=== PATIENT | female | born 1990 | race Caucasian/White ===

== ENCOUNTER 2016-06-05 11:21 | Emergency (ER) | payer MEDICAID ==
[2016-06-01 10:10] VITALS: BMI 36.2
[~2016-06-05 11:21] MED LIST: ABILIFY15 MG PO; BUSPAR 15 MG TA15 MG PO; DEPAKOTE ER500 MG PO; DEPAKOTE500 MG PO; GEODON40 MG PO; HYDROCODON-ACE1 EAC7 PO; KLONOPIN1 MG PO; LINZESS290 MCG PO; OXYCODONE HCL5 MG PO; PHENERGAN25 M1 PO; PROAIR HFA8.5 GM INH; TOFRANIL25 MG PO; TRIAMTERENE-HCT1 TA1 PO
[2016-06-05 11:51] LABS: BASOPHILS 0.2 % (0.0-2.0); EOSINOPHILS 3.2 % (0-7); HEMATOCRIT 40.7 % (36.0-48.0); HEMOGLOBIN 13.6 g/dL (12-16); IMMATURE GRANULOCYTES 0.7 % (0-5); LYMPHOCYTES 18.6 % (15-50); MCH 29.2 pg (26.0-34.0); MCHC 33.4 g/dL (31.0-37.0); MCV 87.5 fL (80.0-100.0); MEAN PLATELET VOLUME 11.5 fL (7.4-10.4); MONOCYTES 6.3 % (2-11); RBC 4.65 10x6/uL (4.00-5.40); RDW 12.9 % (11.5-14.5); WBC 8.1 10x3/uL (4.8-10.8)
[2016-06-05 11:52] LABS: PLATELET COUNT 188 10x3/uL (130-400)
[2016-06-05 12:10] LABS: ALBUMIN 3.1 g/dL (3.4-5.0); ALKALINE PHOSPHATASE 61 U/L (46-116); ALT (SGPT) 27 U/L (10-68); BILIRUBIN - TOTAL 0.32 mg/dL (0.2-1.3); CALC OSMOLALITY 277 mosm/kg (275-300); CALCIUM 8.8 mg/dL (8.5-10.1); CARBON DIOXIDE 22.8 mmol/L (21.0-32.0); CHLORIDE - SERUM 105 mmol/L (98-107); CREATININE - SERUM 0.8 mg/dL (0.6-1.3); GLUCOSE 111 mg/dL (74-106); POTASSIUM - SERUM 3.1 mmol/L (3.5-5.1); PROTEIN - SERUM 6.5 g/dL (6.4-8.2); SODIUM 140 mmol/L (136-145); UREA NITROGEN 6 mg/dL (7-18); eGFR NON AFRICAN AMERICAN 90 mL/min (90-120)
== END 2016-06-05 13:35 | disposition left against medical advice (07) ==
LOC: D.ER 11:21
PROVIDERS: Emergency Medicine
DX: G89.18 Other acute postprocedural pain (principal)

== ENCOUNTER → 2016-06-06 19:52 | Outpatient (CLI) | payer MEDICAID ==
[2016-06-01 10:10] VITALS: BMI 36.2
[2016-06-06 20:13] LABS: BASOPHILS 0.3 % (0.0-2.0); EOSINOPHILS 2.8 % (0-7); HEMATOCRIT 40.4 % (36.0-48.0); HEMOGLOBIN 13.1 g/dL (12-16); IMMATURE GRANULOCYTES 0.3 % (0-5); LYMPHOCYTES 22.1 % (15-50); MCHC 32.4 g/dL (31.0-37.0); MEAN PLATELET VOLUME 13.2 fL (7.4-10.4); MONOCYTES 8.4 % (2-11); NEUTROPHILS 66.1 % (40-80); RBC 4.51 10x6/uL (4.00-5.40); RDW 13.2 % (11.5-14.5); WBC 7.2 10x3/uL (4.8-10.8)
[2016-06-06 20:31] LABS: ALBUMIN 2.9 g/dL (3.4-5.0); ALKALINE PHOSPHATASE 58 U/L (46-116); AMYLASE - SERUM 58 U/L (25-115); CALCIUM 8.4 mg/dL (8.5-10.1); CARBON DIOXIDE 21.4 mmol/L (21.0-32.0); CHLORIDE - SERUM 108 mmol/L (98-107); CREATININE - SERUM 0.8 mg/dL (0.6-1.3); POTASSIUM - SERUM 3.5 mmol/L (3.5-5.1); PROTEIN - SERUM 6.1 g/dL (6.4-8.2); SODIUM 142 mmol/L (136-145); UREA NITROGEN 5 mg/dL (7-18); eGFR NON AFRICAN AMERICAN 90 mL/min (90-120)
[2016-06-06 20:35] LABS: MCV 89.6 fL (80.0-100.0); PLATELET COUNT 253 10x3/uL (130-400)
[2016-06-06 20:40] LABS: ALT (SGPT) 20 U/L (10-68); CALC OSMOLALITY 276 mosm/kg (275-300); GLUCOSE 38 mg/dL (74-106)
== END | disposition home or self-care (01) ==
LOC: D.LABREF 19:52
PROVIDERS: Internal Medicine Gastroenterology
DX: R11.2 Nausea with vomiting, unspecified (principal); R10.13 Epigastric pain

== ENCOUNTER 2017-10-21 14:42 | Emergency (ER) | payer MEDICAID ==
[2016-06-01 10:10] VITALS: BMI 36.2
== END 2017-10-21 16:18 ==
LOC: D.ER 14:42
DX: S50.11XA Contusion of right forearm, initial encounter (principal); S60.211A Contusion of right wrist, initial encounter; S80.01XA Contusion of right knee, initial encounter; S30.0XXA Contusion of lower back and pelvis, initial encounter; Y04.2XXA Assault by strike against or bumped into by another person, initial encounter; Y93.89 Activity, other specified; Y92.019 Unspecified place in single-family (private) house as the place of occurrence of the external cause; S10.91XA Abrasion of unspecified part of neck, initial encounter; F17.200 Nicotine dependence, unspecified, uncomplicated